=== PATIENT | female | born 1975 ===

== ENCOUNTER 2022-01-04 06:27 | Day surgery (SDC) | payer OTHER ==
[~2022-01-04 06:27] MED LIST: ALBUTERO IH; CLARITIN10 MG PO; [UNRECOGNIZED DRUG - OTHER] PO; [UNRECOGNIZED DRUG - OTHER] PO
== END 2022-01-04 17:50 | disposition home or self-care (01) ==
LOC: CIR.AMB 06:27
PROVIDERS: ATTEND Obstetrics & Gynecology
DX: N93.9 Abnormal uterine and vaginal bleeding, unspecified (principal)

== ENCOUNTER 2022-02-08 12:00 | Inpatient (IN) | payer OTHER ==
[~2022-02-08] VITALS: Ht 167.6 cm; Wt 113.4 kg
[2022-02-08] MEDS ORDERED: COZAAR25 MG PO (14:30)
[2022-02-08] MEDS ORDERED: LIPIT PO (14:31)
[2022-02-15] MEDS ORDERED: HYDROCHLOROTH12.5 MG (08:47)
[2022-02-15] MEDS ORDERED: ATORVASTATIN CA10 MG (08:47)
== END 2022-02-18 10:00 | disposition home or self-care (01) | DRG 743 ==
LOC: OB/GYN 02-15 06:13 → O/R 02-15 06:13 → SURH 02-15 12:00 → OB/GYN 02-15 15:43
PROVIDERS: ADMIT Obstetrics & Gynecology; ATTEND Obstetrics & Gynecology
PROC: 0UT97ZZ Resection of Uterus, Via Natural or Artificial Opening (ICD-10-PCS; principal; 2022-02-15 14:15)
DX: N81.4 Uterovaginal prolapse, unspecified (principal); Z20.822 Contact with and (suspected) exposure to COVID-19